=== PATIENT | female | born 1990 | race Caucasian/White ===

== ENCOUNTER 2019-01-13 14:28 | Emergency (ER) | payer MEDICAID ==
[~2019-01-13] VITALS: Ht 160 cm; Wt 51.9 kg
[2019-01-13 14:46] VITALS: BP 109/56; PULSE 69; RESP 18; Ht 160 cm; Wt 51.9 kg
[2019-01-13] MEDS ORDERED: IBUP-1542 PO (15:32)
[2019-01-13] MEDS ORDERED: ACET500C5 PO (15:32)
--- NOTE | 2019-01-13 15:46 | ERD ---
ER Documentation Chief Complaint Chief Complaint RIGHT FACIAL SWELLING TOOTH INFECTION TAKING ANTIBIOTICS HPI 28-year-old female with no reported past medical surgical history who presents with complaint of right facial pain and swelling. Pain localized to upper impacted tooth with right-sided jaw swelling. Was seen by dentist on 05 January, had routine cleaning and told she would need a tooth extraction of an upper motor loss at some point. Patient prescribed antibiotics, amoxicillin but did not fill prescription and only started taking antibiotics yesterday morning. She otherwise denies fever, chills, pain with eye movement, dysphagia, ear pain, sinus pain or pressure, nausea, vomiting, diarrhea, abdominal pain, urinary symptoms. ROS All systems reviewed and are negative except as per history of present illness. Medications Home Meds Active Scripts Acetaminophen* (Tylophen*) 500 Mg Capsule, 1 CAP PO Q6H PRN for PAIN AND OR ELEVATED TEMP, #20 CAP Prov:JEUDINEBONNYHO PA-C 01/13/19 Ibuprofen* (Motrin*) 600 Mg Tab, 600 MG PO Q6, #30 TAB Prov:MSITA MTZ PA-C 01/13/19 Allergies Allergies: Coded Allergies: codeine (Verified Allergy, Unknown, 01/13/19) PMhx/Soc Medical and Surgical Hx: pt denies Medical Hx, pt denies Surgical Hx FmHx Family History: No diabetes, No coronary disease, No other Physical Exam Vitals Vital Signs Date Temp Pulse Resp B/P (MAP) Pulse Ox O2 O2 Flow FiO2 Time Delivery Rate 01/13/19 99.0 69 18 109/56 100 14:46 (73) Physical Exam I have reviewed the triage vital signs. Const: Well nourished, well developed, appears stated age Eyes: PERRL, no conjunctival injection, pain with eye movement HENT: NCAT, Neck supple without meningismus, right upper molar appearing impacted, tooth eroded, tender to palpation over area of tooth, no tender cervical lymphadenopathy, no trismus, uvula midline, posterior oropharynx w ithout swelling, discharge, no drooling, no dysphonia CV: RRR, Warm, well-perfused extremities RESP: CTAB, Unlabored respiratory effort, no stridor GI: soft, non-tender, non-distended, no masses MSK: No gross deformities appreciated Skin: Warm, dry. No rashes Neuro: grossly non focal Psych: Appropriate mood and affect. Procedures/MDM 28-year-old female who presents with complaint of tooth pain. Patient currently on antibiotics which she did not start until recently. I have low suspicion for deep space or tracking infection of HEENT. Patient not immunosuppressed. No e/o tooth fracture, avulsion, or bleeding socket. No e/o RPA, [employer]PA ASSIST[employer] MANAGER, Ludwigs angina, periapical abscess. No e/o gingival hyperplasia or concern for drug reaction. Disposition: Discharge home. Patient has amoxicillin Rx and advised to continue treatment to completion. Discussed return precautions for odontogenic infections and other dental pain emergencies. Patient has follow-up with her dentist. DISPOSITION PLAN: We discussed follow up with the patient's primary care doctor within 24 to 48 hours. Patient counseled regarding my diagnostic impression and care plan. Prior to discharge all questions answered. Pt agrees with treatment plan and understands strict return precautions. Precautionary instructions provided including instructions to return to the ER if not improving or for any worsening or changing symptoms or concerns. Disclaimer: Inadvertent spelling and grammatical errors are likely due to EHR/dictation software use and do not reflect on the overall quality of patient care. Also, please note that the electronic time recorded on this note does not necessarily reflect the actual time of the patient encounter. Departure Diagnosis: Primary Impression: Tooth pain Condition: Stable Patient Instructions: Dental Pain Referrals: [facility] YOU HAVE RECEIVED A MEDICAL SCREENING EXAM AND THE RESULTS INDICATE THAT YOU DO NOT HAVE A CONDITION THAT REQUIRES URGENT TREATMENT IN THE EMERGENCY DEPARTMENT. FURTHER EVALUATION AND TREATMENT OF YOUR CONDITION CAN WAIT UNTIL YOU ARE SEEN IN YOUR DOCTORS OFFICE WITHIN THE NEXT 1-2 DAYS. IT IS YOUR RESPONSIBILITY TO MAKE AN APPOINTMENT FOR FOLOW-UP CARE. IF YOU HAVE A PRIMARY DOCTOR --you should call your primary doctor and schedule an appointment IF YOU DO NOT HAVE A PRIMARY DOCTOR YOU CAN CALL OUR PHYSICIAN REFERRAL HOTLINE AT IF YOU CAN NOT AFFORD TO SEE A PHYSICIAN YOU CAN CHOSE FROM THE FOLLOWING [facility] [id number] [facility] [address] [facility]. [facility] [address] [facility] [address] [facility]. [facility] [address] [facility]. [facility] [address] Additional Instructions: Call your primary care doctor TOMORROW for an appointment during the next 2-3 days.See the doctor sooner or return here if your condition worsens before your appointment time. Take antibiotics as prescribed to completion. Make sure to follow-up with your dentist as planned. If you develop concerning symptoms such as worsening pain, fevers, chills or any other concerning symptoms please return to the emergency room for further care. SMITA MTZ PA-C Jan 13, 2019 15:44
== END 2019-01-13 15:57 | disposition home or self-care (01) ==
LOC: FTE 14:28
DX: K08.89 Other specified disorders of teeth and supporting structures (principal)
CPT/HCPCS: 99282